=== PATIENT | male | born 1950 | race Caucasian/White ===

== ENCOUNTER 2019-12-30 07:33 | Day surgery (SDC) | payer MEDICARE, OTHER ==
[~2019-12-30 07:33] MED LIST: CYCLOPENTOLATE 1% OPHTH DROPS 2 ML ONE; KETOROLAC 0.45% OPHTH DROPS ONE; PHENYLEPHRINE 2.5% OPHTH 2 ML DROPS ONE; PROPARACAINE 0.5% OPHTH DROPS 15 ML ONE
[2019-12-30] MEDS ORDERED: LACTATED RINGERS 1,000 ML IV ONE (07:38)
[2019-12-30] MEDS ORDERED: TRIAMCIN/MOXIFLOX OPHTHALMIC 0.6 ML VIAL IO ONE ×2 (08:47→09:12)
[2019-12-30] MEDS ORDERED: VANCOMYCIN OPHTHALMI 8MG/0.8ML 8 MG/0.8 ML SYRINGE IO ONE ×2 (08:48→09:13)
[2019-12-30] MEDS ORDERED: TIMOLOL 0.5% OPHTH DROPS ONE (08:48)
[2019-12-30] MEDS ORDERED: BSS/LIDOCAINE/EPINEPHRINE 1 ML SYRINGE ONE (08:48)
[2019-12-30] MEDS ORDERED: EPINEPHrine 1 MG/ML AMP ONE (08:48)
[2019-12-30] MEDS ORDERED: BRIMONIDINE 0.2% OPHTH DROPS 5 ML ONE (08:48)
--- NOTE | 2019-12-30 09:02 | ANESTHESIA ---
Pre-Anesthesia VS, & Labs - Diagnosis senile combined cataract - Procedure right cataract extraction with IOL Vital Signs: Temp Pulse Resp BP Pulse Ox 36.7 C 82 16 179/111 H 98 12/30/19 07:43 12/30/19 07:43 12/30/19 07:43 12/30/19 07:43 12/30/19 07:43 Height 6 ft Weight (kg) 118.4 kg - NPO >8 hours Home Medications and Allergies Home Medications: Ambulatory Orders No Known Home Medications 12/30/19 No Known Home Medications 12/30/19 Allergies/Adverse Reactions: Allergies Allergy/AdvReac Type Severity Reaction Status Date / Time Penicillins Allergy Itching Verified 12/29/19 13:58 Anes History & Medical History - Anesthetic History Anesthesia Complications: reports: No previous complications Family history of Anesthesia Complications: Denies - Medical History Cardiovascular: reports: None, Hypertension (today hypertensive,on no meds) Pulmonary: reports: None Gastrointestinal: reports: None Urinary: reports: None Musculoskeletal: reports: Chronic back pain Endocrine/Autoimmune: reports: None Skin: reports: None Exam General: Alert Dental: WNL Mouth Opening: Greater than 4 Fingerbreadths Mallampati classification: I Thyromental Distance: greater than 6 cm Respiratory: Lungs clear Cardiovascular: Regular rate Plan Anesthesia Type: MAC Consent for Procedure(s) Verified and Reviewed: Yes Code Status: Attempt Resuscitation ASA classification: 2-Mild systemic disease Is this case an emergency?: No
[2019-12-30] MEDS ORDERED: MIDAZOLAM 2 MG/2 ML VIAL IVP ONE (09:09)
[2019-12-30] MEDS ORDERED: BRIMONIDINE 0.2% OPHTH DROPS 5 ML OPTH ONE (09:11)
[2019-12-30] MEDS ORDERED: EPINEPHrine 1 MG/ML AMP IR ONE (09:11)
[2019-12-30] MEDS ORDERED: BSS/LIDOCAINE/EPINEPHRINE 1 ML SYRINGE IO ONE (09:12)
[2019-12-30] MEDS ORDERED: CHONDR SULF/HYALURONATE SYRINGE IO ONE (09:12)
[2019-12-30] MEDS ORDERED: PROPARACAINE 0.5% OPHTH DROPS 15 ML EACHEYE ONE (09:12)
[2019-12-30] MEDS ORDERED: TIMOLOL 0.5% OPHTH DROPS OPTH ONE (09:12)
[2019-12-30] MEDS ORDERED: LACTATED RINGERS 500 ML IV ONE ×2 (09:28)
--- NOTE | 2019-12-30 10:06 | OPERATIVE REPORT ---
DATE OF SERVICE: 12/30/2019 Physician: Salvador Meeks MD PREOPERATIVE DIAGNOSIS: Visually significant cataract, right eye. This was his first cataract surge ry. POSTOPERATIVE DIAGNOSIS: Visually significant cataract, right eye. This was his first cataract surg duran. PROCEDURE: Phacoemulsification with posterior chamber intraocular lens implant, right eye. SURGEON: Salvador Meeks MD ANESTHESIA: Monitored anesthesia care. COMPLICATIONS: None. OPERATIVE INDICATIONS: This is a 69-year-old man with progressive vision loss in the right eye due t o 4+ nuclear sclerotic and 3+ cortical cataract. Best corrected visual acuity was 20/125, with glare to hand motion vision in the right eye. Indications for surgery were overall decrease in vision, di fficulty seeing words on a computer screen, difficulty reading, difficulty seeing words, closed capti on or game scores on TV, difficulty seeing street signs, difficulty driving in low light or at night, difficulty driving at night because of headlights from other vehicles, and difficulty with glare or bright lights in any situation. He was consented at length concerning risks and benefits of cataract surgery, after which he expressed a desire to proceed with surgery. OPERATIVE PROCEDURE: Patient was taken to OR #3 and placed under monitored anesthesia care. A surgi erika timeout was conducted confirming correct patient, correct procedure, and correct surgical site. He was given topical anesthesia, and prepped and draped in the usual sterile fashion. The eye was en tered at the 12 and 9 o'clock positions. Intracameral Shugarcaine was injected into the anterior daria mber, followed by Viscoat. A continuous-tear curvilinear capsulorrhexis was performed. The nucleus was hydrodissected and phacoemulsified. The cortex was evacuated using automated infusion and aspira tion. Provisc was injected in the capsular bag, and a 13.0 diopter intraocular lens was inserted int o the bag. Infusion and aspiration was used to evacuate the viscoelastic materials. The eye was inf lated to physiologic pressure using balanced salt solution and found to be watertight. Approximately 0.25 mL of a mixture of triamcinolone and moxifloxacin was injected trans sclerally in the vitreous in the inferotemporal quadrant. An additional 0.55 mL of a mixture of triamcinolone, moxifloxacin an d vancomycin was injected subconjunctivally in the superior quadrant for infection and inflammation p rophylaxis. Wound integrity was checked with Weck-Sarah sponges. Patient was taken from the Operating Room in good condition and given postoperative instructions. TD: 12/30/2019 09:52
[2019-12-30 10:17] VITALS: BP 190/112
--- NOTE | 2019-12-30 12:15 | ANESTHESIA POST OP EVALUATION ---
Anesthesia Post Eval - Post Anesthesia Eval Vitals: Last Vital Signs Temp 36.8 C 12/30/19 10:13 Pulse 76 12/30/19 10:13 Resp 12 12/30/19 10:13 BP 190/112 H 12/30/19 10:13 Pulse Ox 99 12/30/19 10:13 CV Function Including HR & BP: positive: Stable Pain Control: positive: Satisfactory Nausea & Vomiting: positive: Negative Mental Status: positive: Baseline, Patient Participates Respiratory Status: Airway Patent Hydration Status: Satisfactory Anesthesia Complications: positive: None
== END 2019-12-30 07:34 | disposition home or self-care (01) ==
LOC: SDS 07:33
PROVIDERS: ATTEND Ophthalmology
DX: H25.811 Combined forms of age-related cataract, right eye (principal)
CPT/HCPCS: 66984; A9270; J3490; J7120; V2632

== ENCOUNTER 2020-02-04 12:52 | Outpatient (CLI) | payer MEDICARE, OTHER | END 2020-02-04 12:53 | disposition home or self-care (01) | LOC: COV 12:52 | PROVIDERS: ATTEND Ophthalmology | DX: Z01.818 Encounter for other preprocedural examination (principal); H25.812 Combined forms of age-related cataract, left eye; Z20.828 Contact with and (suspected) exposure to other viral communicable diseases ==

== ENCOUNTER 2020-02-10 06:32 | Day surgery (SDC) | payer MEDICARE, OTHER ==
[2020-02-10] MEDS ORDERED: LACTATED RINGERS 500 ML IV ONE ×2 (07:13→09:19)
--- NOTE | 2020-02-10 07:43 | ANESTHESIA ---
Pre-Anesthesia VS, & Labs - Diagnosis left senile cataract - Procedure left cataract extraction with IOL Vital Signs: Temp Pulse Resp BP Pulse Ox 36.7 C 71 16 193/103 H 100 02/10/20 07:14 02/10/20 07:14 02/10/20 07:14 02/10/20 07:14 02/10/20 07:14 Height: 5 ft 1 in Weight (kg): 120.8 kg Body Mass Index: 50.3 BMI Classification: Morbidly Obese - NPO >8 hours Home Medications and Allergies No Known Home Medications 12/30/19 Allergies/Adverse Reactions: Allergies Allergy/AdvReac Type Severity Reaction Status Date / Time Penicillins Allergy Itching Verified 12/29/19 13:58 Anes History & Medical History - Anesthetic History Anesthesia Complications: reports: No previous complications - Medical History Cardiovascular: reports: Hypertension Pulmonary: reports: None Gastrointestinal: reports: None Urinary: reports: None Musculoskeletal: reports: None Endocrine/Autoimmune: reports: None Skin: reports: None - Surgical History Eyes Ears Nose Throat (EENT): Cataracts Exam General: Alert Dental: WNL Mouth Opening: Greater than 4 Fingerbreadths Neck Mobility: Normal Mallampati classification: II Thyromental Distance: greater than 6 cm Respiratory: Lungs clear Cardiovascular: Regular rate Plan Anesthesia Type: MAC Consent for Procedure(s) Verified and Reviewed: Yes Code Status: Attempt Resuscitation ASA classification: 2-Mild systemic disease Is this case an emergency?: No
[2020-02-10] MEDS ORDERED: TRIAMCIN/MOXIFLOX OPHTHALMIC 0.6 ML VIAL IO ONE ×2 (08:29→08:49)
[2020-02-10] MEDS ORDERED: TIMOLOL 0.5% OPHTH DROPS ONE (08:30)
[2020-02-10] MEDS ORDERED: BSS/LIDOCAINE/EPINEPHRINE 1 ML SYRINGE ONE (08:30)
[2020-02-10] MEDS ORDERED: EPINEPHrine 1 MG/ML AMP ONE (08:30)
[2020-02-10] MEDS ORDERED: BRIMONIDINE 0.2% OPHTH DROPS 5 ML ONE (08:30)
[2020-02-10] MEDS ORDERED: VANCOMYCIN OPHTHALMI 8MG/0.8ML 8 MG/0.8 ML SYRINGE IO ONE ×2 (08:30→08:50)
[2020-02-10] MEDS ORDERED: MIDAZOLAM 2 MG/2 ML VIAL IVP ONE (08:35)
[2020-02-10] MEDS ORDERED: hydrALAZINE INJ 20 MG/ML VIAL IVP ONE (08:35)
[2020-02-10] MEDS ORDERED: PROPARACAINE 0.5% OPHTH DROPS 15 ML EACHEYE ONE (08:40)
[2020-02-10] MEDS ORDERED: BRIMONIDINE 0.2% OPHTH DROPS 5 ML OPTH ONE (08:47)
[2020-02-10] MEDS ORDERED: EPINEPHrine 1 MG/ML AMP IR ONE (08:48)
[2020-02-10] MEDS ORDERED: CHONDR SULF/HYALURONATE SYRINGE IO ONE (08:48)
[2020-02-10] MEDS ORDERED: BSS/LIDOCAINE/EPINEPHRINE 1 ML SYRINGE IO ONE (08:49)
[2020-02-10] MEDS ORDERED: TIMOLOL 0.5% OPHTH DROPS OPTH ONE (08:49)
[2020-02-10 09:13] VITALS: BP 159/87
--- NOTE | 2020-02-10 12:34 | OPERATIVE REPORT ---
DATE OF SERVICE: 02/10/2020 Physician: Salvador Meeks MD PREOPERATIVE DIAGNOSIS: Visually significant cataract, left eye. Cataract surgery was performed on the right eye on 12/30/2019. POSTOPERATIVE DIAGNOSIS: Visually significant cataract, left eye. Cataract surgery was performed on the right eye on 12/30/2019. PROCEDURE: Phacoemulsification with posterior chamber intraocular lens implant, left eye. SURGEON: Salvador Meeks MD ANESTHESIA: Monitored anesthesia care. COMPLICATIONS: None. OPERATIVE INDICATIONS: This is a 69-year-old man with progressive vision loss in the left eye due to 4+ nuclear sclerotic and 3+ cortical cataract. Best corrected visual acuity was 20/80, with glare t o hand motion vision in the left eye. Indications for surgery are overall decrease in vision, diffic ulty seeing words on a computer screen, difficulty reading, difficulty seeing words, closed caption o r game scores on TV, difficulty seeing street signs, difficulty driving in low light or at night and difficulty driving at night because of headlights from other vehicles. He was consented at length co ncerning risks and benefits of cataract surgery, after which he expressed a desire to proceed with [facility]. OPERATIVE PROCEDURE: Patient was taken to OR #3 and placed under monitored anesthesia care. A surgi erika timeout was conducted confirming correct patient, correct procedure, and correct surgical site. He was given topical anesthesia, and prepped and draped in the usual sterile fashion. The eye was en tered at the 6 and 3 o'clock positions. Intracameral Shugarcaine was injected into the anterior jamee eda, followed by Viscoat. A continuous-tear curvilinear capsulorrhexis was performed. The nucleus w as hydrodissected and phacoemulsified. The cortex was evacuated using automated infusion and aspirat ion. Provisc was injected in the capsular bag, and a 13.0 diopter intraocular lens was inserted into the bag. Infusion and aspiration was used to evacuate the viscoelastic materials. The eye was infl ated to physiologic pressure using balanced salt solution and found to be watertight. Approximately 0.25 mL of a mixture of triamcinolone and moxifloxacin was injected transsclerally into the vitreous in the inferotemporal quadrant. An additional 0.55 mL of a mixture of triamcinolone, moxifloxacin an d vancomycin was injected subconjunctivally in subconjunctival in the superior quadrant for infection and inflammation prophylaxis. Wound integrity was checked with Weck-Sarah sponges. Patient was taken from the Operating Room in good condition and given postoperative instructions. TD: 02/10/2020 09:07
--- NOTE | 2020-02-10 13:25 | ANESTHESIA POST OP EVALUATION ---
Anesthesia Post Eval - Post Anesthesia Eval Vitals: Last Vital Signs Temp 36.9 C 02/10/20 09:12 Pulse 64 02/10/20 09:12 Resp 16 02/10/20 09:12 BP 159/87 H 02/10/20 09:12 Pulse Ox 97 02/10/20 09:12 CV Function Including HR & BP: positive: Stable Pain Control: positive: Satisfactory Nausea & Vomiting: positive: Negative Mental Status: positive: Baseline, Patient Participates Respiratory Status: Airway Patent Hydration Status: Satisfactory Anesthesia Complications: positive: None
== END 2020-02-10 06:33 | disposition home or self-care (01) ==
LOC: SDS 06:32
PROVIDERS: ATTEND Ophthalmology
DX: H25.812 Combined forms of age-related cataract, left eye (principal)
CPT/HCPCS: 66984; A9270; J3490; J7120; V2632